=== PATIENT | female | born 1945 | race Caucasian/White ===

== ENCOUNTER → 2016-09-19 | Outpatient (CLI) | payer MEDICARE ==
[~2016-09-19] MED LIST: COZAAR50 MG PO; GLUCOPHAGE500 MG PO; HYDROCHLOROTH12.5 MG PO; LIPITOR TAB 2020 MG PO; METOPROLOL TART25 MG PO; PROTONIX40 MG PO; TYLENOL 325MG325 MG PO
== END ==
LOC: KOH-I 09-12 09:00
DX: M79.652 Pain in left thigh (principal); M51.27 Other intervertebral disc displacement, lumbosacral region; M99.73 Connective tissue and disc stenosis of intervertebral foramina of lumbar region
CPT/HCPCS: 72148